=== PATIENT | male | born 1995 | race African-American/Black ===

== ENCOUNTER 2018-07-14 09:06 | Outpatient (CLI) | payer SELFPAY ==
--- NOTE | 2018-07-14 21:47 | CT ---
CT ABDOMEN AND PELVIS WITH CONTRAST 07/14/[address] of the abdomen and pelvis was done using IV contrast only. Axial slices were acquired follo wed by coronal and sagittal reconstructions. The lung bases are clear. The liver, spleen, pancreas, aorta, adrenal glands, and kidneys all were no rmal in appearance. No stones were seen in the gallbladder. There is a large amount of fecal material in the colon. There is no sign of bowel obstruction, howeve r. No free air or free fluid was seen. CT of the pelvis failed to demonstrate any sign of inguinal hernia. No free air, free fluid, or infla mmatory changes were appreciated. 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 The testicles appeared somewhat more lucent than normal, but a testicular ultrasound done in May did not show any evidence of hydroceles. If there was particula r pain here, then an ultrasound should be done to examine all structures IMPRESSION: 1. No evidence of inguinal hernia or obvious causes for left inguinal pain. 2. See comments above regarding scrotum. POS: HOME
== END 2018-07-14 09:07 | disposition home or self-care (01) ==
LOC: BURCT 09:06
PROVIDERS: ATTEND Family Medicine
DX: R10.32 Left lower quadrant pain (principal)
CPT/HCPCS: 74177

== ENCOUNTER 2020-05-31 17:05 | Outpatient (CLI) | payer OTHER ==
[2020-05-31 18:18] LABS: Bilirubin Negative (Negative); Blood, Urine Negative (Negative); Clarity Slightly Cloudy (Clear); Glucose, Urine (Dipstick) Negative (Negative); Ketone, Urine Negative (Negative); Leukocyte Trace (Negative); Nitrite Negative (Negative); Protein, Urine (Dipstick) Negative (Neg-Trace); Specific Gravity, Urine 1.025 (1.005-1.030); Urobilinogen 0.2 mg/dL (Less than 2); pH, Urine 6.5 (5.0-9.0)
[2020-05-31 18:32] LABS: Bacteria/HPF None Seen HPF (None Seen); Mucous/LPF 1+ LPF (<2+); Other Microscopic Description C&S SET UP; RBC/HPF None Seen HPF (0-3); Squamous Epithelial 0-3 HPF (0-3); WBC/HPF 0-3 HPF (0-3)
--- NOTE | 2020-05-31 20:13 | RAD ---
LEFT KNEE TWO VIEWS: 05/31/20 No fracture or joint effusion was seen. the joint space is normal in appearance. IMPRESSION: No significant finding. POS: HOME
[2020-06-04 21:58] LABS: Chlam.trachomatis by PCR,Urine Not Detected (NotDetected)
== END 2020-05-31 17:06 | disposition home or self-care (01) ==
LOC: BURRAD 17:05
PROVIDERS: ATTEND Family Medicine
DX: M25.562 Pain in left knee (principal); R30.0 Dysuria
CPT/HCPCS: 81001; 87086; 87491; 87591